=== PATIENT | female | born 1985 | race Caucasian/White ===

== ENCOUNTER 2021-01-12 23:50 | Emergency (ER) | payer MEDICAID, OTHER ==
[~2021-01-12] VITALS: Ht 172.7 cm; Wt 72.6 kg
[2021-01-12 23:52] VITALS: BP 153/93
[2021-01-13 00:33] LABS: Basophils # (auto) 0.1 10 ^3/uL (0-0.2); Eosinophils # (auto) 0.2 10 ^3/uL (0-0.8); Eosinophils % (auto) 1.5 % (0.0-7.0); Hematocrit 45.5 % (36.0-46.0); Hemoglobin 15.2 g/dL (12.2-16.2); Lymphocytes # (auto) 3.5 10 ^3/uL (0.4-5.4); Lymphocytes % (auto) 34.2 % (10.0-50.0); Mean Corpuscular Hemoglobin 28.8 pg (28.0-32.0); Mean Corpuscular Hgb Conc. 33.5 g/dL (32.0-36.0); Monocytes % (auto) 9.5 % (0.0-12.0); Neutrophils # (auto) 5.5 10 ^3/uL (1.6-8.6); Neutrophils % (auto) 53.8 % (37.0-80.0); Nucleated Red Blood Cells % 0.1 %; Red Blood Cells 5.29 10^6/uL (4.0-5.20); Red Cell Distribution Width 13.1 % (11.8-14.3); White Blood Cell 10.3 10^3/uL (4.4-10.8)
[2021-01-13 00:49] LABS: Albumin 3.7 g/dL (3.4-5.0); Anion Gap 10 (5-15); BUN/Creatinine Ratio 11.1; Blood Urea Nitrogen 8 mg/dL (7-18); Carbon Dioxide 20 mmol/L (21-32); Chloride 109 mmol/L (98-107); GFR African American 117 mL/min; GFR Non-African American 97 mL/min; Glucose 105 mg/dL (74-106); Sodium 139 mmol/L (136-145)
[2021-01-13 00:52] LABS: Potassium 3.8 mmol/L (3.5-5.1)
[2021-01-13 01:03] LABS: Alanine Aminotransferase 22 U/L (13-56); Alkaline Phosphatase 57 U/L (45-117); Aspartate Aminotransferase 15 U/L (15-37); Bilirubin, Total 0.7 mg/dL (0.2-1.0); Total Protein 7.5 g/dL (6.4-8.2)
== END 2021-01-13 04:05 | disposition left against medical advice (07) ==
LOC: ER 23:51
DX: R07.89 Other chest pain (principal); Z53.21 Procedure and treatment not carried out due to patient leaving prior to being seen by health care provider
CPT/HCPCS: 36415; 80053; 84484; 85025; 93005